=== PATIENT | female | born 2000 | race Two or more races ===

== ENCOUNTER 2020-11-07 20:05 | Inpatient (IN) ==
[2020-11-07] MEDS ORDERED: Buffered Lidocaine 1% SYRIN 1 ml INTRADERM ONE (21:18)
[2020-11-07] MEDS ORDERED: Lactated Ringers 1000 ml BAG 1,000 ML IV ONE (21:18)
[2020-11-07 21:37] LABS: ABS Eosinophils 0.1 10^3/ul (0-0.6); ABS Lymphocytes 2.7 10^3/ul (1.0-4.8); ABS Monocytes 0.9 10^3/ul (0-0.8); ABS Neutrophils 7.2 10^3/ul (1.5-7.7); Eosinophil % 1.1 %; Hematocrit 33 % (35-47); Hemoglobin 11.5 g/dL (12.0-16.0); Lymphocyte % 24.3 %; Mean Corpuscular HGB Conc 35 g/dL (31-36); Mean Corpuscular Hemoglobin 29 pg (27-31); Mean Corpuscular Volume 83 fL (80-97); Mean Platelet Volume 10.1 fL (7.4-10.4); Nucleated Red Blood Cells % 0.1; Platelet Count 133 10^3/uL (150-450); Red Blood Count 3.98 10^6 /uL (3.70-4.87); Red Cell Distribution Width 12 % (10-15); White Blood Count 10.9 10^3/uL (3.5-10.8)
[2020-11-07 21:53] LABS: Albumin 3.3 g/dL (3.2-5.2); Albumin/Globulin Ratio 1.3 (1-3); Calcium 9.3 mg/dL (8.6-10.3); EGFR African American 127.8 (>60); EGFR Non-African American 105.6 (>60); Globulin 2.5 g/dL (2-4); Platelet Count 134 10^3/ul (150-450); Potassium 3.6 mmol/L (3.5-5.0); Total Bilirubin 0.2 mg/dL (0.2-1.0); Total Protein 5.8 g/dL (6.4-8.9)
[2020-11-07 21:57] LABS: Activated Partial Thrombo Time 24.9 seconds (26.0-38.0); INR 0.87 (0.82-1.09)
[2020-11-07] MEDS ORDERED: Lactated Ringers 1000 ml BAG 1,000 ML IV SCH (22:00)
[2020-11-07 22:18] LABS: Urine Benzodiazepine Screen None Detected (None Detect); Urine Opiates Screen None Detected (None Detect)
[2020-11-07 22:20] LABS: Schistocytes ABSENT
[2020-11-07] MEDS ORDERED: Promethazine INJ(RESTRICTED) 25 MG/ML 1 ml VIAL IV PRN (23:43)
[2020-11-07] MEDS ORDERED: Morphine 10 MG/ML VIAL (1 ml) IV ONE (23:43)
[2020-11-07] MEDS ORDERED: Ondansetron 4 mg VIAL 2 MG/ML 2 ml VIAL IV ONE (23:43)
[2020-11-07] MEDS ORDERED: Morphine 10 MG/ML VIAL (1 ml) IV PRN (23:46)
[2020-11-07] MEDS ORDERED: Ondansetron 4 mg VIAL 2 MG/ML 2 ml VIAL ONE (23:49)
[2020-11-08 06:26] LABS: ABS Basophils 0.1 10^3/ul (0-0.2); ABS Eosinophils 0.1 10^3/ul (0-0.6); ABS Lymphocytes 2.2 10^3/ul (1.0-4.8); ABS Monocytes 0.7 10^3/ul (0-0.8); ABS Neutrophils 9.4 10^3/ul (1.5-7.7); Eosinophil % 0.6 %; Hematocrit 35 % (35-47); Hemoglobin 11.7 g/dL (12.0-16.0); Lymphocyte % 17.5 %; Mean Corpuscular HGB Conc 33 g/dL (31-36); Mean Corpuscular Hemoglobin 28 pg (27-31); Mean Corpuscular Volume 85 fL (80-97); Platelet Count 131 10^3/uL (150-450); Red Blood Count 4.18 10^6 /uL (3.70-4.87); Red Cell Distribution Width 12 % (10-15); White Blood Count 12.4 10^3/uL (3.5-10.8)
[2020-11-08 06:35] LABS: Activated Partial Thrombo Time 23.7 seconds (26.0-38.0); Fibrinogen 426.9 mg/dL (110.8-404.3); INR 0.93 (0.82-1.09)
[2020-11-08 06:41] LABS: Albumin 3.3 g/dL (3.2-5.2); Albumin/Globulin Ratio 1.2 (1-3); Calcium 9.1 mg/dL (8.6-10.3); EGFR African American 125.7 (>60); EGFR Non-African American 103.9 (>60); Globulin 2.7 g/dL (2-4); Potassium 4.2 mmol/L (3.5-5.0); Total Bilirubin 0.3 mg/dL (0.2-1.0)
[2020-11-08 06:47] LABS: Platelet Count 130 10^3/ul (150-450)
[2020-11-08 07:23] LABS: Schistocytes ABSENT
[2020-11-08] MEDS ORDERED: OBEPIDURAL 250 ML EPIDURAL ONE (08:21)
[2020-11-08] MEDS ORDERED: Sodium Citrate/Citric Acid LIQ 15 ML UDC PO PRN (09:11)
[2020-11-08] MEDS ORDERED: Phenylephrine 40 mcg/mL 10mL (400mcg) SYRINGE IV PUSH PRN ×2 (09:11)
[2020-11-08] MEDS ORDERED: Lactated Ringers 1000 ml BAG 1,000 ML IV ONE (09:11)
[2020-11-08] MEDS ORDERED: OBEPIDURAL 250 ML EPIDURAL SCH (10:00)
[2020-11-08] MEDS ORDERED: Lactated Ringers 1000 ml BAG 1,000 ML IV SCH ×2 (10:00→23:00)
[2020-11-08] MEDS ORDERED: Oxytocin in LR 20 UNITS/1,000 ML BAG IVPB ONE (12:03)
[2020-11-08] MEDS ORDERED: Oxytocin in LR 20 UNITS/1,000 ML BAG IVPB SCH ×2 (14:00→23:00)
[2020-11-08] MEDS ORDERED: Bupivacaine 0.25% SDV PF 10 ML VIAL INJ ONE ×2 (16:31→19:23)
[2020-11-08] MEDS ORDERED: Famotidine IV 10 MG/ML 2 ml VIAL (20 mg) ONE (18:55)
[2020-11-08] MEDS ORDERED: Famotidine IV 10 MG/ML 2 ml VIAL (20 mg) IV SLOW PU ONE (19:14)
[2020-11-08] MEDS ORDERED: Witch Hazel PAD JAR TOPICAL PRN (22:29)
[2020-11-08] MEDS ORDERED: Dibucaine 1% OINT 28.35 GM TUBE PR PRN (22:29)
[2020-11-08] MEDS: Ibuprofen ADULT LIQ 600 MG/30 ML UDC PO SCH (23:00)
[2020-11-09] MEDS: Ibuprofen ADULT LIQ 600 MG/30 ML UDC PO SCH ×2 (05:08→12:11)
[2020-11-09] MEDS ORDERED: Lidocaine 1% VIAL 10 MG/ML VIAL ONE (05:24)
[2020-11-09 07:52] LABS: ABS Basophils 0.1 10^3/ul (0-0.2); ABS Eosinophils 0.1 10^3/ul (0-0.6); ABS Lymphocytes 2.2 10^3/ul (1.0-4.8); ABS Monocytes 0.9 10^3/ul (0-0.8); ABS Neutrophils 11.6 10^3/ul (1.5-7.7); Eosinophil % 0.5 %; Hematocrit 28 % (35-47); Hemoglobin 9.6 g/dL (12.0-16.0); Mean Corpuscular HGB Conc 34 g/dL (31-36); Mean Corpuscular Hemoglobin 28 pg (27-31); Mean Corpuscular Volume 84 fL (80-97); Mean Platelet Volume 9.6 fL (7.4-10.4); Nucleated Red Blood Cells % 0.1; Platelet Count 113 10^3/uL (150-450); Red Blood Count 3.37 10^6 /uL (3.70-4.87); Red Cell Distribution Width 12 % (10-15); White Blood Count 14.9 10^3/uL (3.5-10.8)
[2020-11-09] MEDS ORDERED: ASA-APAP-CAFFEINE ES (NF) TAB PO SCH (09:00)
[2020-11-09] MEDS ORDERED: Docusate LIQ 100 MG/10 ML UDC PO SCH (09:00)
[2020-11-09] MEDS ORDERED: Butalb/Acetamin/Caff TAB 325-50-40MG PO PRN (09:04)
[2020-11-09 13:22] VITALS: BP 146/78
[2020-11-10 14:22] LABS: Cytomegalovirus IgG Antibody Negative (Negative); Herpes Simplex Virus I IgG AB Negative (Negative); Rubella IgG Antibody Positive; Rubella IgG Antibody Index 1.3; Toxoplasma IgG Antibody Negative (Negative); Toxoplasma IgG Antibody Index <3 IU/mL
[2020-11-10 19:36] LABS: Cyclic Citrullinated Peptide <15.6 U
[2020-11-11 11:13] LABS: DRVVT Screen Ratio 0.92 ratio (<1.20); LAC APTT 25 sec (25 - 37); LAC INR 0.9 (0.9-1.1); Prothrombin Time(LAC) 10.2 sec (9.4 - 12.5)
== END 2020-11-09 16:10 | disposition home or self-care (01) | DRG 560 ==
LOC: MCHOBOUT 20:05 → MCHOB 20:28
PROVIDERS: ADMIT Midwife; ATTEND Midwife

== ENCOUNTER 2022-04-04 05:32 | Inpatient (IN) ==
[2022-04-04] MEDS ORDERED: Buffered Lidocaine 1% SYRIN 1 ml INTRADERM ONE ×2 (06:36→10:04)
[2022-04-04 07:14] LABS: ABS Eosinophils 0.1 10^3/ul (0-0.6); ABS Lymphocytes 1.9 10^3/ul (1.0-4.8); ABS Monocytes 0.8 10^3/ul (0-0.8); ABS Neutrophils 6.2 10^3/ul (1.5-7.7); Eosinophil % 1.4 %; Hematocrit 33 % (35-47); Hemoglobin 11.1 g/dL (12.0-16.0); Lymphocyte % 20.8 %; Mean Corpuscular HGB Conc 33 g/dL (31-36); Mean Corpuscular Hemoglobin 26 pg (27-31); Mean Corpuscular Volume 79 fL (80-97); Mean Platelet Volume 9.8 fL (7.4-10.4); Platelet Count 150 10^3/uL (150-450); Red Blood Count 4.23 10^6 /uL (3.70-4.87); Red Cell Distribution Width 14 % (10-15)
[2022-04-04 07:35] LABS: Urine Benzodiazepine Screen None Detected (None Detect); Urine Cannabinoids Screen None Detected (None Detect); Urine Opiates Screen None Detected (None Detect)
[2022-04-04 08:02] LABS: Albumin 3.1 g/dL (3.2-5.2); Albumin/Globulin Ratio 1.3 (1-3); Calcium 8.5 mg/dL (8.6-10.3); Globulin 2.4 g/dL (2-4); Potassium 4.1 mmol/L (3.5-5.0); Total Bilirubin 0.3 mg/dL (0.2-1.0); Total Protein 5.5 g/dL (6.4-8.9); Uric Acid 6.1 mg/dL (2.3-6.6); eGFR CKD-EPI 126.3 (>60)
[2022-04-04 08:45] LABS: Urine Collection Time OB 24 hr
[2022-04-04 08:47] LABS: Urine Total Volume OB 1100 mL
[2022-04-04 09:11] LABS: Ur TP Concentration Obstetric 36 mg/dL
[2022-04-04] MEDS ORDERED: Penicillin G Potassium IV 5,000,000 UNITS in NS 0.9% 100 ml BAG 100 ML IVPB ONE (10:04)
[2022-04-04] MEDS: Betamethasone 6 mg/ml 5 ml VIAL IM SCH (10:19)
[2022-04-04] MEDS ORDERED: Penicillin G Potassium IV 3,000,000 UNITS in NS 0.9% 100 ml BAG 100 ML IVPB SCH (11:00)
[2022-04-04] MEDS: miSOPROStol 100 mcg TAB VAGINAL SCH (11:51)
[2022-04-04] MEDS: Lactated Ringers 1000 ml BAG 1,000 ML IV ONE (22:03)
[2022-04-04] MEDS ORDERED: Dinoprostone 10 MG VAG.SUPP VAGINAL ONE (22:42)
[2022-04-04] MEDS ORDERED: Promethazine INJ(RESTRICTED) 25 MG/ML 1 ml VIAL IV PRN (23:29)
[2022-04-04] MEDS ORDERED: Nalbuphine 10 MG/ML 1 ML VIAL IV PRN (23:29)
[2022-04-05] MEDS: Lactated Ringers 1000 ml BAG 1,000 ML IV ONE (07:52)
[2022-04-05] MEDS ORDERED: OBEPIDURAL (200 ML) 200 ML EPIDURAL ONE (08:23)
[2022-04-05] MEDS ORDERED: Lidocaine/Epinephrin 1.5%/200 5 ML AMP INJ ONE (08:24)
[2022-04-05 08:39] LABS: Hematocrit 36 % (35-47); Hemoglobin 11.6 g/dL (12.0-16.0); Mean Corpuscular HGB Conc 32 g/dL (31-36); Mean Corpuscular Hemoglobin 26 pg (27-31); Mean Corpuscular Volume 79 fL (80-97); Mean Platelet Volume 9.7 fL (7.4-10.4); Platelet Count 182 10^3/uL (150-450); Red Blood Count 4.51 10^6 /uL (3.70-4.87); Red Cell Distribution Width 14 % (10-15); White Blood Count 13.1 10^3/uL (3.5-10.8)
[2022-04-05 08:49] LABS: Albumin 3.5 g/dL (3.2-5.2); Potassium 4.5 mmol/L (3.5-5.0); Total Bilirubin 0.4 mg/dL (0.2-1.0)
[2022-04-05 08:56] LABS: Albumin/Globulin Ratio 1.4 (1-3); Globulin 2.5 g/dL (2-4); Uric Acid 6.8 mg/dL (2.3-6.6); eGFR CKD-EPI 106.1 (>60)
[2022-04-05] MEDS: Lactated Ringers 1000 ml BAG 1,000 ML IV SCH (09:02)
[2022-04-05] MEDS ORDERED: Phenylephrine 40 mcg/mL 10mL (400mcg) SYRINGE IV PUSH PRN ×2 (09:58)
[2022-04-05] MEDS ORDERED: OBEPIDURAL (200 ML) 200 ML EPIDURAL SCH (10:00)
[2022-04-05] MEDS ORDERED: Calcium Gluconate 1 GM/10 ML VIAL (in Pyxis) IV PUSH PRN (10:05)
[2022-04-05] MEDS ORDERED: Magnesium Sulfate OB PREMIX 4 GM/100 ML BAG IV ONE (10:05)
[2022-04-05] MEDS ORDERED: NS 0.9% 1000 ml BAG 1,000 ML IV SCH (10:15)
[2022-04-05] MEDS ORDERED: Oxytocin in LR 20,000 MILLI.UNIT/1,000 ML BAG IV SCH (10:15)
[2022-04-05 10:16] LABS: Urine Appearance Clear; Urine Bilirubin Negative (Negative); Urine Blood Negative (Negative); Urine Color Yellow; Urine Glucose Negative (Negative); Urine Ketones Trace (Negative); Urine Nitrite Negative (Negative); Urine Protein 1+(30 mg/dL) (Negative); Urine Specific Gravity 1.019 (1.002-1.030); Urine Urobilinogen Negative (Negative)
[2022-04-05 10:37] LABS: Urine Bacteria Absent (Absent); Urine Red Blood Cell Trace(0-2/hpf) (Absent); Urine Squamous Epithelial Cell Present (Absent); Urine White Blood Cell Trace(0-5/hpf) (Absent)
[2022-04-05] MEDS: Betamethasone 6 mg/ml 5 ml VIAL IM SCH (10:41)
[2022-04-05] MEDS: Magnesium Sulfate OB PREMIX 40 GM/1,000 ML BAG IVPB SCH (10:57)
[2022-04-05] MEDS ORDERED: fentaNYL 100 mcg/2 ml 50 MCG/ML VIAL ONE (12:34)
[2022-04-05] MEDS ORDERED: ceFOXitin 2 GM IVPREMIX 2 GM/50 ML BAG ONE (12:59)
[2022-04-05] MEDS ORDERED: Ketamine HCL 50 mg/ml 10 ml VIAL (500 MG) ONE (13:06)
[2022-04-05] MEDS ORDERED: Midazolam 2 mg/2 ml VIAL 1 mg/ml 2 ml VIAL (2 mg) ONE ×2 (13:09→13:34)
[2022-04-05] MEDS ORDERED: Acetaminophen IV 1 GM/100ML 1,000 MG/100 ML BAG IV ONE (13:39)
[2022-04-05] MEDS ORDERED: Oxytocin 10 UNITS/ML 1 ML VIAL ONE (13:39)
[2022-04-05] MEDS ORDERED: Morphine PF AMP (0.5MG/ML) 5 MG/10 ML AMP ONE (13:49)
[2022-04-05] MEDS ORDERED: Naloxone 0.4 mg VIAL 0.4 mg/ml 1 ml VIAL IV PRN ×2 (14:00→14:28)
[2022-04-05] MEDS ORDERED: Penicillin G Potassium IV 3,000,000 UNITS in NS 0.9% 100 ml BAG 100 ML IVPB SCH (14:00)
[2022-04-05] MEDS ORDERED: oxyCODONE/Acetamin 5/325 mg TAB PO PRN ×2 (14:00→14:28)
[2022-04-05] MEDS ORDERED: Scopolamine 1 mg/72hr PATCH TRANSDERM PRN (14:00)
[2022-04-05] MEDS ORDERED: Prochlorperazine 5 mg/ml 2 ml VIAL (10 mg) IV PRN (14:00)
[2022-04-05] MEDS ORDERED: Glycerin ADULT 2.4 gm SUPP PR PRN (14:22)
[2022-04-05] MEDS ORDERED: Witch Hazel PAD JAR TOPICAL PRN (14:22)
[2022-04-05] MEDS ORDERED: Dibucaine 1% OINT 28.35 GM TUBE PR PRN (14:22)
[2022-04-05] MEDS ORDERED: fentaNYL 100 mcg/2 ml 50 MCG/ML VIAL IV PRN (14:28)
[2022-04-05] MEDS ORDERED: Ondansetron 4 mg VIAL 2 MG/ML 2 ml VIAL IV PRN (14:28)
[2022-04-05] MEDS ORDERED: Lactated Ringers 1000 ml BAG 1,000 ML IV SCH (15:00)
[2022-04-05] MEDS ORDERED: Azithromycin 500 mg/250 ml NS 500 MG/250 ML BAG IVPB ONE (15:15)
[2022-04-05] MEDS: ceFOXitin 2 GM IVPREMIX 2 GM/50 ML BAG IVPB SCH (21:00)
[2022-04-06] MEDS: ceFOXitin 2 GM IVPREMIX 2 GM/50 ML BAG IVPB SCH (05:21)
[2022-04-06] MEDS: Lactated Ringers 1000 ml BAG 1,000 ML IV SCH (06:30)
[2022-04-06 06:32] LABS: ABS Basophils 0.1 10^3/ul (0-0.2); ABS Lymphocytes 1.3 10^3/ul (1.0-4.8); ABS Monocytes 0.8 10^3/ul (0-0.8); ABS Neutrophils 12.7 10^3/ul (1.5-7.7); Hematocrit 26 % (35-47); Hemoglobin 8.5 g/dL (12.0-16.0); Mean Corpuscular HGB Conc 33 g/dL (31-36); Mean Corpuscular Hemoglobin 26 pg (27-31); Mean Corpuscular Volume 79 fL (80-97); Mean Platelet Volume 9.3 fL (7.4-10.4); Platelet Count 157 10^3/uL (150-450); Red Blood Count 3.28 10^6 /uL (3.70-4.87); Red Cell Distribution Width 14 % (10-15); White Blood Count 14.9 10^3/uL (3.5-10.8)
[2022-04-06] MEDS: Magnesium Sulfate OB PREMIX 40 GM/1,000 ML BAG IVPB SCH (06:35)
[2022-04-07] MEDS: miSOPROStol 100 mcg TAB VAGINAL SCH (21:17)
[2022-04-08 14:54] VITALS: BP 148/78
== END 2022-04-08 17:50 | disposition home or self-care (01) | DRG 540 ==
LOC: MCHOBOUT 05:32 → MCHOB 10:06
PROVIDERS: ADMIT Obstetrics & Gynecology; ATTEND Obstetrics & Gynecology